=== PATIENT | male | born 1980 | race Caucasian/White ===

== ENCOUNTER 2021-09-14 08:54 | Emergency (ER) | payer OTHER ==
[~2021-09-14] VITALS: Ht 152.4 cm; Wt 77.1 kg
[2021-09-14 09:02] VITALS: BP 138/90
[2021-09-14] MEDS ORDERED: ALBU18HF2 INH (09:25)
[2021-09-14] MEDS ORDERED: FLUT1DIS3 INH (09:25)
--- NOTE | 2021-09-14 09:32 | NUR ---
Patient discharged to home in stable condition. Written and verbal after care instructions given. Patient verbalizes understanding of instruction.
== END 2021-09-14 09:32 | disposition home or self-care (01) ==
LOC: ER 08:56
DX: J45.909 Unspecified asthma, uncomplicated (principal); Z76.0 Encounter for issue of repeat prescription